=== PATIENT | female | born 1960 | race Two or more races ===

== ENCOUNTER 2020-11-08 13:53 | Outpatient (CLI) | payer OTHER | END 2020-11-08 15:31 | disposition home or self-care (01) | LOC: MAMO-SONO 13:53 | PROVIDERS: ATTEND Internal Medicine | DX: N63.11 Unspecified lump in the right breast, upper outer quadrant (principal) ==

== ENCOUNTER 2021-11-13 14:47 | Outpatient (CLI) | payer OTHER | END 2021-11-13 15:01 | disposition home or self-care (01) | LOC: MAMO-SONO 14:47 | PROVIDERS: ATTEND Internal Medicine | DX: N60.11 Diffuse cystic mastopathy of right breast (principal); N60.12 Diffuse cystic mastopathy of left breast ==

== ENCOUNTER 2023-05-11 11:19 | Inpatient (IN) | payer OTHER ==
[~2023-05-11] VITALS: Ht 172.7 cm; Wt 85.3 kg
[2023-05-11] MEDS ORDERED: IRBESARTAN-HCT1 EAC1 PO (11:29)
[2023-05-11] MEDS ORDERED: METOPROLOL SUCC50 MG PO (11:29)
== END 2023-05-15 18:04 | disposition home or self-care (01) | DRG 390 ==
LOC: ER 11:19 → SURG 18:35
PROVIDERS: Emergency Medicine; Internal Medicine Infectious Disease; ADMIT Specialist; ATTEND Specialist
PROC: BW21YZZ Computerized Tomography (CT Scan) of Abdomen and Pelvis using Other Contrast (ICD-10-PCS; principal; 2023-05-11)
PROC: BW21YZZ Computerized Tomography (CT Scan) of Abdomen and Pelvis using Other Contrast (ICD-10-PCS; 2023-05-13)
PROC: 02HV33Z Insertion of Infusion Device into Superior Vena Cava, Percutaneous Approach (ICD-10-PCS; 2023-05-14)
DX: K56.1 Intussusception (principal); K56.0 Paralytic ileus; Z20.822 Contact with and (suspected) exposure to COVID-19; I10 Essential (primary) hypertension